=== PATIENT | male | born 1990 | race American Indian/Alaskan Native ===

== ENCOUNTER 2017-04-20 15:42 | Emergency (ER) | payer OTHER ==
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
[2017-04-20] MEDS ORDERED: FLEXERIL PO ONE (20:03)
[2017-04-20] MEDS ORDERED: NORCO 5/325 PO ONE (20:03)
[2017-04-20 22:22] VITALS: BP 111/68
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
== END 2017-04-20 22:20 | disposition home or self-care (01) ==
LOC: ED 15:42
DX: M54.5 Low back pain (principal); M54.2 Cervicalgia; F17.200 Nicotine dependence, unspecified, uncomplicated; V43.52XA Car driver injured in collision with other type car in traffic accident, initial encounter; Y93.89 Activity, other specified; Y99.8 Other external cause status; Y92.410 Unspecified street and highway as the place of occurrence of the external cause
CPT/HCPCS: 72040; 72072; 72100; 99283